=== PATIENT | female | born 1995 | race Caucasian/White ===

== ENCOUNTER 2017-04-01 06:35 | Inpatient (IN) | payer BC ==
[2017-04-01] MEDS ORDERED: Nalbuphine 20 MG/1 ML Amp IVPUSH PRN (07:33)
[2017-04-01] MEDS ORDERED: Lidocaine 1% 50 ML MDV INJECT ONE (07:33)
[2017-04-01] MEDS ORDERED: Sodium Chloride 0.9% 10 ML Syringe FLUSH PRN (07:33)
--- NOTE | 2017-04-01 07:43 | PCM.LDHP ---
L&D History of Present Illness - General Date of Service: 04/01/17 Admit Problem/Dx: Patient Status Order with Admit Dx/Problem 04/01/17 07:33 Patient Status [ADT] Routine Admission Diagnosis/Problem Admission Diagnosis/Problem 04/01/17 07:38 Induction of labor at 41 weeks 04/01/17 07:43 21 yo presents for induction of labor at 41 weeks gestation. routine care without complications. Good FM, No VB, No LOF. GBS Neg B positive Source of Information: Patient History Limitations: Reports: No Limitations - History of Present Illness Timing/Duration: Reports: intermittent Location, : Reports: Abdomen Quality: Reports: Pressure Severity: Mild Improves with: Reports: None Worsens with: Reports: None Associated Symptoms: Denies: vaginal bleeding, vaginal discharge - Related Data Allergies/Adverse Reactions: Allergies Allergy/AdvReac Type Severity Reaction Status Date / Time No Known Allergies Allergy Verified 09/24/15 21:51 Home Medications: Home Meds Vit W-Ca,Fe,FA(<1 mg) [ Vitamins] 1 tab PO DAILY 09/24/15 [ History] Past Medical History - Past Health History Medical/Surgical History: Denies Medical/Surgical History HEENT History: Reports: None Genitourinary History: Reports: Pyelonephritis 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: , Other (See Below) Other OB/BYN History: PUPPS Dermatologic History: Reports: Eczema, Other (See Below) Other Dermatologic History: PUPPS of - Past Surgical History HEENT Surgical History: Reports: Oral Surgery Social & Family History - Family History Family Medical History: Noncontributory - Tobacco Use Smoking Status *Q: Never Smoker Second Hand Smoke Exposure: Yes - Recreational Drug Use Recreational Drug Use: No H&P Review of Systems - Review of Systems: Review Of Systems: See Below General: Reports: No Symptoms HEENT: Reports: No Symptoms Pulmonary: Reports: No Symptoms Cardiovascular: Reports: No Symptoms Gastrointestinal: Reports: No Symptoms Genitourinary: Reports: No Symptoms Musculoskeletal: Reports: No Symptoms Skin: Reports: No Symptoms Psychiatric: Reports: No Symptoms Neurological: Reports: No Symptoms Hematologic/Lymphatic: Reports: No Symptoms Immunologic: Reports: No Symptoms L&D Exam - Exam Exam: See Below - OB Specific Contraction Intensity: Mild to Moderate Movement: Active Heart Tones: Present Heart Tones per Min: 140 Heart Rate (FHR) Variability: Moderate (6-25 bmp) Presentation: Vertex Estimated Weight: 3500 - Lennon Score Lennon Score Cervix Position: Midposition Lennon Score Consistency: Soft Lennon Score Effacement: 31-50% Lennon Score Dilation: 3-4 cm Lennon Score Infant's Station: -2 Lennon Score Total: 7 - Exam General: Alert, Oriented Genitourinary: Normal external exam Extremities: Normal Inspection, No Pedal Edema Skin: Warm, Dry, Intact Psychiatric: Alert, Normal Affect, Normal Mood Problem List Initiated/Reviewed/Updated: Yes Orders Last 24hrs: Active Orders 24 hr Category Date Time Status Patient Status [ADT] Routine ADT 04/01/17 07:33 Ordered Activity as Tolerated [RC] PFP Care 04/01/17 07:33 Ordered Communication Order [RC] ASDIRECTED Care 04/01/17 07:33 Ordered Communication Order [RC] ASDIRECTED Care 04/01/17 07:33 Ordered Communication Order [RC] ASDIRECTED Care 04/01/17 07:33 Ordered Communication Order [RC] ASDIRECTED Care 04/01/17 07:33 Ordered Heart Tones [RC] ASDIRECTED Care 04/01/17 07:33 Ordered Monitoring [RC] INTERMITTENT Care 04/01/17 07:33 Ordered Notify Provider [RC] ASDIRECTED Care 04/01/17 07:33 Ordered Notify Provider [RC] PFP Care 04/01/17 07:33 Ordered Notify Provider [RC] PRN Care 04/01/17 07:33 Ordered Peripheral IV Care [RC] . DIRECTED Care 04/01/17 07:33 Ordered Vaginal Exam [RC] ASDIRECTED Care 04/01/17 07:33 Ordered Vital Signs [RC] ASDIRECTED Care 04/01/17 07:33 Ordered Vital Signs [RC] PER UNIT ROUTINE Care 04/01/17 07:33 Ordered Clear Liquid Diet [DIET] Diet 04/01/17 Breakfast Ordered CBC W/O DIFF,HEMOGRAM [HEME] Stat Lab 04/01/17 07:33 Ordered Lactated Ringers [Ringers, Lactated] 1,000 ml Med 04/01/17 07:45 Ordered IV ASDIRECTED Lactated Ringers [Ringers, Lactated] 1,000 ml Med 04/01/17 07:45 Ordered IV ASDIRECTED Lidocaine 1% [Xylocaine 1%] Med 04/01/17 07:33 Once 50 ml INJECT ONETIME ONE Nalbuphine [Nubain] Med 04/01/17 07:33 Ordered 10 mg IVPUSH Q2H PRN Oxytocin/Lactated Ringers [Pitocin in LR 10 Units/1,000 Med 04/01/17 07:45 Ordered ML] 10 unit in 1,000 ml IV .CONTINUOUS Oxytocin/Lactated Ringers [Pitocin in LR 10 Units/1,000 Med 04/01/17 07:45 Ordered ML] 10 unit in 1,000 ml IV TITRATE Sodium Chloride 0.9% [Saline Flush] Med 04/01/17 07:33 Ordered 10 ml FLUSH ASDIRECTED PRN Electronic Heart Tones Ext w TOCO [WOMSER] Ot 04/01/17 07:33 Ordered Routine Electronic Heart Tones Internal [WOMSER] Per Unit Ot 04/01/17 07:33 Ordered Routine Peripheral IV Insertion Adult [OM.PC] Routine Oth 04/01/17 07:33 Ordered Peripheral IV Insertion Adult [OM.PC] Routine Oth 04/01/17 07:33 Ordered Resuscitation Status Routine Resus Stat 04/01/17 07:33 Ordered Assessment/Plan Comment:: 21 yo at 41 weeks for induction of labor Plan: pitocin inductions GBS negative. pt prefers no epidural.
[2017-04-01] MEDS ORDERED: Oxytocin/Lactated Ringers 10 UNIT/1,000 ML BAG IV SCH ×2 (07:45)
[2017-04-01] MEDS ORDERED: Lactated Ringers 1,000 ML IV SCH ×2 (07:45)
[2017-04-01] MEDS ORDERED: Lidocaine 1% 50 ML MDV ONE (18:03)
[2017-04-01] MEDS ORDERED: Benzocaine/Menthol 20%-0.5% Spray 56 GM Canister TOP PRN (19:26)
[2017-04-01] MEDS ORDERED: Bisacodyl 10 MG Supp RECTAL PRN (19:26)
[2017-04-01] MEDS ORDERED: Acetaminophen 325 MG Tab PO PRN (19:26)
--- NOTE | 2017-04-01 19:48 | PCM.SN ---
- Free Text/Narrative Note: On 04/01/17 at 1830 this 21 yo G2 now P2 female delivery a viable male weighing 8lbs 6 ounces via vaginal delivery. Delivery was over a sterile field with presenting in DANNA position. A nuchal cord x 1 was reduced over the body. After reduction of nuchal cord there was an obvious avulsion of the cord prior to delivery of the body. Mild shoulder dystocia, released with elevated legs and counterclockwise pressure on the posterior right (anterior) shoulder. At delivery, the site of cord avulsion was noted to be at the level of the umbilicus and skin. Cord clamp was placed. Cord blood was not obtained. Infant was transferred immediately to the warmer for stabilization with stimulation, pressure over umbilicus (which was not actively bleeding) and DeLee suction of clear fluid by nursing staff. Perineum was explored and no lacerations noted. An intact placenta delivered spontaneously at 1840. Minimal amount of bleeding resolved with uterine massage and evacuation of clot. Apgars 7 and 9. EBL 350 cc.
[2017-04-02] MEDS: Ibuprofen 600 MG Tab PO PRN ×2 (05:34→20:10)
--- NOTE | 2017-04-02 13:04 | PCM.PNPP ---
- General Info Date of Service: 04/02/17 Admission Dx/Problem (Free Text): vaginal delivery Functional Status: Reports: Pain Controlled, Tolerating Diet, Ambulating, Urinating - Review of Systems General: Reports: No Symptoms HEENT: Reports: No Symptoms Pulmonary: Reports: No Symptoms Cardiovascular: Reports: No Symptoms Gastrointestinal: Reports: No Symptoms Genitourinary: Reports: No Symptoms Musculoskeletal: Reports: No Symptoms Skin: Reports: No Symptoms Neurological: Reports: No Symptoms Psychiatric: Reports: No Symptoms - General Info Date of Service: 04/02/17 - Patient Data Vital Signs - Most Recent: Last Vital Signs Temp 36.4 C 04/02/17 12:00 Pulse 80 04/02/17 12:00 Resp 16 04/02/17 12:00 BP 116/80 04/02/17 12:00 Pulse Ox 98 04/02/17 12:00 Weight - Most Recent: 68.311 kg Lab Results - Last 24 Hours: Laboratory Results - last 24 hr 04/02/17 Range/Units 06:25 WBC 20.83 H (3.98-10.04) K/mm3 RBC 3.61 L (3.98-5.22) M/mm3 Hgb 11.1 L (11.2-15.7) gm/L Hct 33.3 L (34.1-44.9) % MCV 92.2 (79.4-94.8) fl MCH 30.7 (25.6-32.2) pg MCHC 33.3 (32.2-35.5) g/dl RDW Std Deviation 42.0 (36.4-46.3) fL Plt Count 196 (182-369) K/mm3 MPV 10.1 (9.4-12.3) fl Med Orders - Current: Current Medications Acetaminophen (Tylenol) 650 mg PO Q4H PRN PRN Reason: mild pain or fever Benzocaine/Menthol (Dermoplast Pain Relief [place]) 0 gm TOP ASDIRECTED PRN PRN Reason: Perineal Comfort Measure Bisacodyl (Dulcolax) 10 mg RECTAL BID PRN PRN Reason: Constipation Lactated Ringer's (Ringers, Lactated) 1,000 mls @ 100 mls/hr IV ASDIRECTED EMILIA Last Admin: 04/01/17 08:00 Dose: 100 mls/hr Lactated Ringer's (Ringers, Lactated) 1,000 mls @ 40 mls/hr IV ASDIRECTED EMILIA Oxytocin/Lactated Ringer's (Pitocin In Lr 10 Units/1,000 Ml) 10 unit in 1,000 mls @ 500 mls/hr IV .CONTINUOUS EMILIA Last Admin: 04/01/17 18:30 Dose: 500 mls/hr Oxytocin/Lactated Ringer's (Pitocin In Lr 10 Units/1,000 Ml) 10 unit in 1,000 mls @ 12 mls/hr IV TITRATE EMILIA; 2 MUNITS/MIN PRN Reason: Protocol Last Titration: 04/01/17 17:15 Dose: 6 munits/min, 36 mls/hr Ibuprofen (Motrin) 600 mg PO Q4H PRN PRN Reason: Mild pain or fever Last Admin: 04/02/17 05:34 Dose: 600 mg Nalbuphine HCl (Nubain) 10 mg IVPUSH Q2H PRN PRN Reason: Pain (moderate 4-6) Sodium Chloride (Saline Flush) 10 ml FLUSH ASDIRECTED PRN PRN Reason: Keep Vein Open Discontinued Medications Lidocaine HCl (Xylocaine 1%) 50 ml INJECT ONETIME ONE Stop: 04/01/17 07:34 Last Admin: 04/01/17 21:09 Dose: Not Given Lidocaine HCl (Xylocaine 1%) Confirm Administered Dose 50 ml .ROUTE .STK-MED ONE Stop: 04/01/17 18:04 Last Admin: 04/01/17 21:09 Dose: Not Given - Infant Interaction Disposition, : [place] in Room with Family Infant Interaction: Holding Infant Feeding: Breastfed Infant; Nursed Well Support Person: - Recovery Exam Fundal Tone: Firm Fundal Level: 1 Fingerbreadths Below Umbilicus Fundal Placement: Midline Lochia Amount: Small, Moderate Lochia Color: Rubra/Red Perineum Description: Intact, Minimal Bruising/Swelling Episiotomy/Laceration: None Bladder Status: Voiding - Exam General: Alert, Oriented Extremities: No Pedal Edema Skin: Warm, Dry, Intact Psy/Mental Status: Alert, Normal Affect, Normal Mood - Problem List Review Problem List Initiated/Reviewed/Updated: Yes - My Orders Last 24 Hours: My Active Orders 04/01/17 19:26 Patient Status [ADT] Routine Activity as Tolerated [RC] .PRN Acetaminophen [Tylenol] 650 mg PO Q4H PRN Benzocaine/Menthol [Dermoplast Pain Relief [place]] See Dose Instructions TOP ASDIRECTED PRN Bisacodyl [Dulcolax] 10 mg RECTAL BID PRN Ibuprofen [Motrin] 600 mg PO Q4H PRN Assess Lochia [WOMSER] Per Unit Routine Assess Uterine Involution [WOMSER] Per Unit Routine Breast Pump [WOMSER] Per Unit Routine Medication Administration Instruction [OM.PC] Routine Perineal Care [OM.PC] Per Unit Routine Sitz Bath [OM.PC] Per Unit Routine 04/01/17 19:30 Heat Therapy [OM.PC] PRN 04/01/17 Dinner Regular Diet [DIET] 04/02/17 19:30 Heat Therapy [OM.PC] PRN - Plan Plan:: 21 yo at 41 weeks for induction of labor Plan: pitocin inductions GBS negative. pt prefers no epidural. 04/02/17 routine care anticipate d/c on 04/03/17
--- NOTE | 2017-04-03 07:13 | PCM.DCSUM1 ---
Discharge Summary - Hospital Course Free Text/Narrative:: 21 yo at PPD #2 s/p NVD. Breastfeeing pain controlled. no concerns. routine stay. Exam unremarkable D/C to home today - Discharge Data Discharge Date: 04/03/17 Discharge Disposition: Home, Self-Care 01 Condition: Good - Discharge Diagnosis/Problem(s) (1) Normal labor SNOMED Code(s): 65676927 ICD Code: O80 - ENCOUNTER FOR FULL-TERM UNCOMPLICATED DELIVERY; Z37.9 - OUTCOME OF DELIVERY, UNSPECIFIED Status: Acute Current Visit: No - Patient Instructions Diet: Regular Diet as Tolerated Driving: [address] Drive Today Showering/Bathing: August Shower Notify Provider of: Fever, Increased Pain, Swelling and Redness, Drainage, Nausea and/or Vomiting - Discharge Plan Prescriptions/Med Rec: Docusate Sodium [Colace] 100 mg PO BID #60 cap Home Medications: Home Meds Vit W-Ca,Fe,FA(<1 mg) [ Vitamins] 1 tab PO DAILY 09/24/15 [ History] Acetaminophen [Tylenol] 650 mg PO Q4H PRN tablet 04/03/17 [Rx] Docusate Sodium [Colace] 100 mg PO BID #60 cap 04/03/17 [Rx] Ibuprofen [IJD: Ibuprofen] 600 mg PO Q4H PRN tablet 04/03/17 [Rx] Referrals: Lexi Murguia MD [Primary Care Provider] - (6-8 weeks) - Discharge Summary/Plan Comment DC Time >30 min.: No - General Info Date of Service: 04/03/17 Functional Status: Reports: Pain Controlled, Tolerating Diet, Ambulating - Patient Data Vitals - Most Recent: Last Vital Signs Temp 36.7 C 04/03/17 02:23 Pulse 71 04/03/17 02:23 Resp 16 04/03/17 02:23 BP 118/66 04/03/17 02:23 Pulse Ox 98 04/03/17 02:23 Weight - Most Recent: 68.311 kg I&O - Last 24 hours: Intake & Output 04/02/17 04/03/17 04/03/17 22:59 06:59 14:59 Intake Total 420 Balance 420 Med Orders - Current: Current Medications Acetaminophen (Tylenol) 650 mg PO Q4H PRN PRN Reason: mild pain or fever Benzocaine/Menthol (Dermoplast Pain Relief [place]) 0 gm TOP ASDIRECTED PRN PRN Reason: Perineal Comfort Measure Bisacodyl (Dulcolax) 10 mg RECTAL BID PRN PRN Reason: Constipation Lactated Ringer's (Ringers, Lactated) 1,000 mls @ 100 mls/hr IV ASDIRECTED EMILIA Last Admin: 04/01/17 08:00 Dose: 100 mls/hr Lactated Ringer's (Ringers, Lactated) 1,000 mls @ 40 mls/hr IV ASDIRECTED EMILIA Oxytocin/Lactated Ringer's (Pitocin In Lr 10 Units/1,000 Ml) 10 unit in 1,000 mls @ 500 mls/hr IV .CONTINUOUS EMILIA Last Admin: 04/01/17 18:30 Dose: 500 mls/hr Oxytocin/Lactated Ringer's (Pitocin In Lr 10 Units/1,000 Ml) 10 unit in 1,000 mls @ 12 mls/hr IV TITRATE EMILIA; 2 MUNITS/MIN PRN Reason: Protocol Last Titration: 04/01/17 17:15 Dose: 6 munits/min, 36 mls/hr Ibuprofen (Motrin) 600 mg PO Q4H PRN PRN Reason: Mild pain or fever Last Admin: 04/02/17 20:10 Dose: 600 mg Nalbuphine HCl (Nubain) 10 mg IVPUSH Q2H PRN PRN Reason: Pain (moderate 4-6) Sodium Chloride (Saline Flush) 10 ml FLUSH ASDIRECTED PRN PRN Reason: Keep Vein Open Discontinued Medications Lidocaine HCl (Xylocaine 1%) 50 ml INJECT ONETIME ONE Stop: 04/01/17 07:34 Last Admin: 04/01/17 21:09 Dose: Not Given Lidocaine HCl (Xylocaine 1%) Confirm Administered Dose 50 ml .ROUTE .STK-MED ONE Stop: 04/01/17 18:04 Last Admin: 04/01/17 21:09 Dose: Not Given *Q Meaningful Use (DIS) - VTE *Q VTE Criteria *Q: - Stroke *Q Stroke Criteria *Q: - AMI *Q AMI Criteria *Q: - General Info Date of Service: 04/03/17 - Patient Data Vital Signs - Most Recent: Last Vital Signs Temp 36.7 C 04/03/17 02:23 Pulse 71 04/03/17 02:23 Resp 16 04/03/17 02:23 BP 118/66 04/03/17 02:23 Pulse Ox 98 04/03/17 02:23 Weight - Most Recent: 68.311 kg I&O - Last 24 Hours: Intake & Output 04/02/17 04/03/17 04/03/17 22:59 06:59 14:59 Intake Total 420 Balance 420 Med Orders - Current: Current Medications Acetaminophen (Tylenol) 650 mg PO Q4H PRN PRN Reason: mild pain or fever Benzocaine/Menthol (Dermoplast Pain Relief [place]) 0 gm TOP ASDIRECTED PRN PRN Reason: Perineal Comfort Measure Bisacodyl (Dulcolax) 10 mg RECTAL BID PRN PRN Reason: Constipation Lactated Ringer's (Ringers, Lactated) 1,000 mls @ 100 mls/hr IV ASDIRECTED EMILIA Last Admin: 04/01/17 08:00 Dose: 100 mls/hr Lactated Ringer's (Ringers, Lactated) 1,000 mls @ 40 mls/hr IV ASDIRECTED EMILIA Oxytocin/Lactated Ringer's (Pitocin In Lr 10 Units/1,000 Ml) 10 unit in 1,000 mls @ 500 mls/hr IV .CONTINUOUS EMILIA Last Admin: 04/01/17 18:30 Dose: 500 mls/hr Oxytocin/Lactated Ringer's (Pitocin In Lr 10 Units/1,000 Ml) 10 unit in 1,000 mls @ 12 mls/hr IV TITRATE EMILIA; 2 MUNITS/MIN PRN Reason: Protocol Last Titration: 04/01/17 17:15 Dose: 6 munits/min, 36 mls/hr Ibuprofen (Motrin) 600 mg PO Q4H PRN PRN Reason: Mild pain or fever Last Admin: 04/02/17 20:10 Dose: 600 mg Nalbuphine HCl (Nubain) 10 mg IVPUSH Q2H PRN PRN Reason: Pain (moderate 4-6) Sodium Chloride (Saline Flush) 10 ml FLUSH ASDIRECTED PRN PRN Reason: Keep Vein Open Discontinued Medications Lidocaine HCl (Xylocaine 1%) 50 ml INJECT ONETIME ONE Stop: 04/01/17 07:34 Last Admin: 04/01/17 21:09 Dose: Not Given Lidocaine HCl (Xylocaine 1%) Confirm Administered Dose 50 ml .ROUTE .STK-MED ONE Stop: 04/01/17 18:04 Last Admin: 04/01/17 21:09 Dose: Not Given - Interaction Infant Disposition, : in Room with Family Infant Interaction: Holding Infant Feeding: Breastfed Infant; Nursed Well Support Person: - Recovery Exam Fundal Tone: Firm Fundal Level: 1 Fingerbreadths Below Umbilicus Fundal Placement: Midline Lochia Amount: Small Lochia Color: Rubra/Red Perineum Description: Intact, Minimal Bruising/Swelling Episiotomy/Laceration: None Bladder Status: Voiding Urinary Elimination: Voided - Exam General: Alert, Oriented Extremities: No Pedal Edema Skin: Warm, Dry, Intact
[2017-04-03 10:51] VITALS: BP 126/72
== END 2017-04-03 10:35 | disposition home or self-care (01) | DRG 560 ==
LOC: JD.OBCHECK 06:35 → JD.OB 06:35 → JD.OBCHECK 07:32 → JD.OB 07:33 → OBSVTOIN 18:30 → JD.OB 04-02 10:43
PROVIDERS: ADMIT Family Medicine; ATTEND Family Medicine
PROC: 10E0XZZ Delivery of Products of Conception, External Approach (ICD-10-PCS; principal; 2017-04-01)
PROC: 3E033VJ Introduction of Other Hormone into Peripheral Vein, Percutaneous Approach (ICD-10-PCS; 2017-04-01)
DX: O48.0 Post-term pregnancy (principal); Z3A.41 41 weeks gestation of pregnancy; Z37.0 Single live birth; O69.81X0 Labor and delivery complicated by cord around neck, without compression, not applicable or unspecified; O66.0 Obstructed labor due to shoulder dystocia
CPT/HCPCS: 36415; 59409; 85027; A9270-GY; J2590; J7120

== ENCOUNTER 2018-07-04 07:26 | Inpatient (IN) | payer BC ==
--- NOTE | 2018-07-04 09:12 | PCM.LDHP ---
L&D History of Present Illness - General Date of Service: 07/04/18 Admit Problem/Dx: Admission Diagnosis/Problem Admission Diagnosis/Problem 07/04/18 09:03 Pamela is a 23-year-old 3 para 2002 white female with intrauterine at term with an BROCK of 07/08/2018 as dated by an early ultrasound done on 12/15/2017 and supported by second ultrasound done on 02/23/2018. She is admitted for elective induction of labor. And 3/7 weeks gestational age. Source of Information: Patient History Limitations: Reports: No Limitations - History of Present Illness Introduction:: History of present illness patient is a 23-year-old 3 para 2001 female at 39 2/7 weeks' BROCK of 07/08/2018 admitted for elective induction of labor. BROCK determined by early ultrasound supported by second ultrasound. She is admitted for artificial rupture membranes induction of labor. This is carried out with resultant small amount of clear amniotic fluid. She is seen to be michelle every 4-5 minutes, mild in intensity. Patient is tolerating well. The heart tones are within normal limits. OB history history 3 para 2001. Patient's uncertain last menstrual period was 09/23/2017. She has regular periods acute 28 days. Menarche age 14. No control time conception. Previous deliveries include the followin. A male infant born 03/24/2017 at 41 weeks gestational age after 10 hours of labor. 8 lbs. 6 oz. Is Yadiel 2. Male infant born 09/25/2015 at 41 weeks gestational age after 8 hours labor. 7 lbs. 14 oz. Child's name is Javi. Her course was relatively unremarkable. She is a centering patient. Patient made good fundal height growth and had a weight gain from 121 pounds up to 149 for 28 pound increase. Her E PDS score on 02/16/2018 was 0/30. Group B strep screen is negative. Patient plans to breast-feed. She desires a natural labor Laboratory testing in shows blood to be B+ with negative amylase screen. First hemoglobin was 12.5 g who deciliter and platelets are 290 ,000. She is rubella nonimmune. RPR is nonreactive. Urine culture was negative. B surface antigen and HIV assays were both negative. GC and chlamydia tests were negative. Her 1 hour GTT was normal at 121. Second trimester hemoglobin was 10.6 and patient was started on ferrous sulfate at that time. Her platelets at that time were normal at 211,000. Group B strep screen negative. Allergies none Medications: 1. Ferrous sulfate 325 mg by mouth daily. 2. vitamins 1 by mouth daily Past medical history: 1. Normal spontaneous vaginal delivery 2 Past surgical history: 1. Oral surgery Family history: Mother is alive. She had 12 periods. She has high blood pressure. Father is alive and well. Patient has 7 brothers and 4 sisters. One sister with type 1 diabetes. Maternal grandfather is alive and with history of heart disease. Has occasional congestive heart failure. He is 89 years old. Paternal grandmother is alive and well. Paternal grandfather . Had type 2 diabetes. Had heart disease with open heart surgery. The terminal grandmother is secondary to old age. Did have a vertebral fracture. There is no family history of cancer, Nicola related problems, bleeding or clotting problems anesthesia or asthma concerns. Social history: Patient is . is Jd. She is [id number] mom. They live in [facility]. She has had some college education. She does not use any significant loss of alcohol, drugs or tobacco. Review of systems: In general patient has no complaints. Baby has been active. She is having some contractions but they are not intense. Skin: Negative Lungs: No infectious symptoms or shortness of breath Cardiovascular: No chest pain or exercise intolerance Breasts: No lumps, changes in size, pain, dimpling, discharge or axillary or supraclavicular concerns. GI: Negative : Negative Musculoskeletal: Negative Neurological: Negative In general the patient is well-developed, well-nourished, pleasant female of stated age in no acute distress. Skin is warm dry without lesions. HEENT, neck and back within normal limits. Lungs are clear with good breath sounds in all lung cervantes. Cardiovascular exam shows regular and rhythm without murmurs. Abdomen is gravid. Fundal height consistent with term . Baby in vertex presentation by Miky normal. Genital exam shows cervix to be 2 cm, 70% effaced, soft, -3 station, mid position, vertex presentation Extremities and neurological exam are grossly within normal limits. - Related Data Allergies/Adverse Reactions: Allergies Allergy/AdvReac Type Severity Reaction Status Date / Time No Known Allergies Allergy Verified 09/24/15 21:51 Home Medications: Home Meds Vit Calc,Iron,Folic [ Vitamins] 1 tab PO DAILY 09/24/15 [ History] Acetaminophen [Tylenol] 650 mg PO Q4H PRN tablet 04/03/17 [Rx] Docusate Sodium [Colace] 100 mg PO BID #60 cap 04/03/17 [Rx] Ibuprofen [IJD: Ibuprofen] 600 mg PO Q4H PRN tablet 04/03/17 [Rx] Past Medical History - Past Health History Medical/Surgical History: Denies Medical/Surgical History HEENT History: Reports: None Genitourinary History: Reports: Pyelonephritis 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: Other OB/BYN History: PUPPS Dermatologic History: Reports: Eczema Other Dermatologic History: PUPPS of - Past Surgical History HEENT Surgical History: Reports: Oral Surgery Other HEENT Surgeries/Procedures: wisdom teeth Social & Family History - Family History Family Medical History: Noncontributory - Tobacco Use Smoking Status *Q: Never Smoker Second Hand Smoke Exposure: No - Caffeine Use Caffeine Use: Reports: None - Recreational Drug Use Recreational Drug Use: No H&P Review of Systems - Review of Systems: Review Of Systems: See Below L&D Exam - Exam Exam: See Below - Vital Signs Vital Signs: Last Vital Signs Temp 37.2 C 07/04/18 08:53 Pulse 107 H 07/04/18 08:53 Resp 18 07/04/18 08:53 BP 114/71 07/04/18 08:53 Pulse Ox 98 07/04/18 08:53 Problem List Initiated/Reviewed/Updated: Yes Assessment/Plan Comment:: Assessment: 1. 39-3/7 week intrauterine , admitted for elective induction of labor 2. Rubella nonimmune 3. Group B strep screen negative 4. Desires natural labor 5. Plans to breast-feed. Plan: 1. Artificial rupture membranes/Pitocin induction of labor. Procedure, risks, benefits, alternatives of care discussed patient and her . They appear to understand and wish to proceed 2. MMR after delivery and prior to discharge from the hospital para 3. Support breast-feed incision 4. Epidural and other pain control modalities available to the patient she desires 5. Anticipate normal spontaneous vaginal delivery.
[2018-07-04] MEDS ORDERED: Nalbuphine 20 MG/ML 1 ML Syringe IVPUSH PRN (09:29)
[2018-07-04] MEDS ORDERED: Ondansetron 4 MG/2 ML SDV IVPUSH PRN (09:29)
[2018-07-04] MEDS ORDERED: Sodium Chloride 0.9% 10 ML Syringe FLUSH PRN (09:29)
[2018-07-04] MEDS ORDERED: Lactated Ringers 1,000 ML IV SCH (09:30)
[2018-07-04] MEDS ORDERED: Oxytocin/Lactated Ringers 10 UNIT/1,000 ML BAG IV SCH ×2 (09:30→09:45)
--- NOTE | 2018-07-04 19:29 | PCM.SN ---
- Free Text/Narrative Note: Pamela is a 23-year-old 3 now para 3003 white female who was admitted on the a.m. of 07/04/2018 for elective induction of labor. She is 39-3/7 weeks gestational age with an BROCK of 07/08/2018. Patient underwent artificial rupture membranes/Pitocin induction of labor. She progressed steadily to complete cervical dilation and at 1859 hrs. on 07/04/2018 she delivered a viable, steen, female with Apgars of 8 and 9, a length of 21 inches, a weight of 3960 g (8 lbs. 12 oz.). The baby delivered in a left occiput anterior position. Nuchal cord was noted 1 moderately tightreduced over the baby's body as unable to reduce over the baby's head. There was some difficulty delivering the anterior shoulder and suprapubic pressure by nursing staff was utilized to facilitate delivery of that shoulder. Findings most probably consistent with a mild shoulder dystocia. Pitocin was started immediately after delivery of the baby via IV to facilitate increase in uterine tone and decrease risk of bleeding. After baby was delivered the baby was placed on mom's abdomen. Baby was dried. Nose and mouth were bulb suctioned. Cord was allowed to pulsate for 1-2 minutes and then was clamped 2 and was then cut by the baby's father Ronan. Cord bloods obtained. The cord was noted to have 3 vessels. The placenta delivered in a Thompson fashion. It appeared intact, complete and was discarded per patient desire. Estimated blood loss was approximately 400 mL. Patient plans to breast-feed. Condition: Good
[2018-07-04] MEDS ORDERED: Benzocaine/Menthol 20%-0.5% Spray 56 GM Canister TOP PRN (19:37)
[2018-07-04] MEDS ORDERED: Witch Hazel Medicated Pads 40/Jar TOP PRN (19:37)
[2018-07-04] MEDS ORDERED: Docusate Sodium 100 MG Cap PO PRN (19:37)
[2018-07-04] MEDS ORDERED: Acetaminophen 325 MG Tab PO PRN (19:37)
[2018-07-04] MEDS ORDERED: Lanolin 100% Cream 7 GM Tube TOP PRN (19:37)
[2018-07-04] MEDS ORDERED: Methylergonovine 0.2 MG/1 ML Amp ONE (19:49)
[2018-07-04] MEDS: Ibuprofen 600 MG Tab PO PRN (21:03)
[2018-07-05] MEDS: Ibuprofen 600 MG Tab PO PRN ×2 (07:54→16:35)
--- NOTE | 2018-07-05 10:17 | PCM.SN ---
- Free Text/Narrative Note: note: Patient is doing well in the period. Minimal lochia, voiding well, ambulated without problems. Nursing without concerns. Patient is afebrile, vital signs are stable Abdomen is flat, soft, uterus is below the umbilicus and is firm and nontender. Legs are nontender. Assessment: recovery going well. Plan: Routine care. Patient be discharged home within the next 24-48 hours.
[2018-07-05] MEDS: Prenatal Multivitamin with Calcium/Folic Acid/Iron Tab PO SCH (11:42)
[2018-07-06] MEDS: Ibuprofen 600 MG Tab PO PRN (01:19)
--- NOTE | 2018-07-06 08:31 | PCM.DCSUM1 ---
Discharge Summary - Hospital Course Free Text/Narrative:: Pamela is a 23-year-old 3 now para 3003 white female who was admitted on the a.m. of 07/04/2018 for elective induction of labor. She is 39-3/7 weeks gestational age with an BROCK of 07/08/2018. Patient underwent artificial rupture membranes/Pitocin induction of labor. She progressed steadily to complete cervical dilation and at 1859 hrs. on 07/04/2018 she delivered a viable, steen, female with Apgars of 8 and 9, a length of 21 inches, a weight of 3960 g (8 lbs. 12 oz.). The baby delivered in a left occiput anterior position. Nuchal cord was noted 1 moderately tightreduced over the baby's body as unable to reduce over the baby's head. There was some difficulty delivering the anterior shoulder and suprapubic pressure by nursing staff was utilized to facilitate delivery of that shoulder. Findings most probably consistent with a mild shoulder dystocia. Pitocin was started immediately after delivery of the baby via IV to facilitate increase in uterine tone and decrease risk of bleeding. After baby was delivered the baby was placed on mom's abdomen. Baby was dried. Nose and mouth were bulb suctioned. Cord was allowed to pulsate for 1-2 minutes and then was clamped 2 and was then cut by the baby's father Ronan. Cord bloods obtained. The cord was noted to have 3 vessels. The placenta delivered in a Thompson fashion. It appeared intact, complete and was discarded per patient desire. Estimated blood loss was approximately 400 mL. Patient plans to breast-feed. Post patient is done well. She is desiring discharge home. Diagnosis: Stroke: No - Discharge Data Discharge Date: 07/06/18 Discharge Disposition: Home, Self-Care 01 Condition: Good - Patient Instructions Diet: Regular Diet as Tolerated (Nursing diet and increase calories and calcium as directed.) Activity: As Tolerated (No intercourse or tampons until bleeding resolves) Driving: May Drive Today Showering/Bathing: May Shower (May take a bath) Notify Provider of: Fever, Increased Pain, Swelling and Redness, Nausea and/or Vomiting - Discharge Plan Home Medications: Home Meds Vit Calc,Iron,Folic [ Vitamins] 1 tab PO DAILY 09/24/15 [ History] Calcium Carbonate [Calcium] 500 mg PO DAILY 07/04/18 [History] Ferrous Sulfate [Iron] 325 mg PO DAILY 07/04/18 [History] Acetaminophen [Tylenol] 650 mg PO Q4H PRN tablet 07/06/18 [Rx] Ibuprofen [Motrin] 600 mg PO Q4H PRN tablet 07/06/18 [Rx] Referrals: Yomi Shearer MD [Primary Care Provider] - (Return to clinicDr. [facility]harer2 weeks.) - Discharge Summary/Plan Comment DC Time >30 min.: No Discharge Summary/Plan Comment: Discharge instructions: 1. Discharge home 2. Diet, activity and follow-up discussed with patient. Recommend nursing diet with increased calories and calcium. 3. Precautions given concern increased pain, bleeding, temperature, signs/ symptoms of DVT/PE. 4. Medications per home medication was printed, discussed with and given to the patient. 5. Return to clinic-Dr. Shearer[facility] in 2 weeks. Diagnosis: Term -delivered Condition: Good - Patient Data Vitals - Most Recent: Last Vital Signs Temp 36.6 C 07/06/18 03:38 Pulse 74 07/06/18 03:38 Resp 15 07/06/18 03:38 BP 119/89 07/06/18 03:38 Pulse Ox 98 07/06/18 03:38 Weight - Most Recent: 67.132 kg I&O - Last 24 hours: Intake & Output 07/05/18 07/06/18 07/06/18 22:59 06:59 14:59 Intake Total 120 Balance 120 Med Orders - Current: Current Medications Acetaminophen (Tylenol) 650 mg PO Q4H PRN PRN Reason: mild pain or fever Last Admin: 07/05/18 11:44 Dose: 650 mg Benzocaine/Menthol (Dermoplast Pain Relief [place]) 0 gm TOP ASDIRECTED PRN PRN Reason: Perineal Comfort Measure Last Admin: 07/04/18 21:04 Dose: 1 applic Docusate Sodium (Colace) 100 mg PO BID PRN PRN Reason: Constipation Last Admin: 07/05/18 11:42 Dose: 100 mg Emollient Ointment (Lansinoh Hpa) 0 gm TOP ASDIRECTED PRN PRN Reason: Sore Nipples Last Admin: 07/05/18 10:18 Dose: 1 applic Ibuprofen (Motrin) 600 mg PO Q4H PRN PRN Reason: Mild pain or fever Last Admin: 07/06/18 01:19 Dose: 600 mg Prenat Multivit/Relations Director/Iron/Folic Ac ( Plus Iron) 1 each PO DAILY EMILIA Last Admin: 07/05/18 11:42 Dose: 1 each Witch Paige (Tucks) 1 pad TOP ASDIRECTED PRN PRN Reason: Pain Last Admin: 07/04/18 21:04 Dose: 1 applic Discontinued Medications Lactated Ringer's (Ringers, Lactated) 1,000 mls @ 100 mls/hr IV ASDIRECTED EMILIA Last Admin: 07/04/18 10:41 Dose: 100 mls/hr Oxytocin/Lactated Ringer's (Pitocin In Lr 10 Units/1,000 Ml) 10 unit in 1,000 mls @ 500 mls/hr IV .CONTINUOUS EMILIA Last Admin: 07/04/18 19:52 Dose: 500 mls/hr Oxytocin/Lactated Ringer's (Pitocin In Lr 10 Units/1,000 Ml) 10 unit in 1,000 mls @ 12 mls/hr IV TITRATE EMILIA; Protocol Last Titration: 07/04/18 15:51 Dose: 12 munits/min, 72 mls/hr Methylergonovine Maleate (Methergine) Confirm Administered Dose 0.2 mg .ROUTE .STK-MED ONE Stop: 07/04/18 19:50 Last Admin: 07/04/18 19:53 Dose: 0.2 mg Nalbuphine HCl (Nubain) 10 mg IVPUSH Q2H PRN PRN Reason: pain Ondansetron HCl (Zofran) 4 mg IVPUSH Q4H PRN PRN Reason: Nausea/Vomiting Sodium Chloride (Saline Flush) 10 ml FLUSH ASDIRECTED PRN PRN Reason: Keep Vein Open
[2018-07-06] MEDS: Prenatal Multivitamin with Calcium/Folic Acid/Iron Tab PO SCH (09:16)
[2018-07-06 09:58] VITALS: BP 101/82
== END 2018-07-06 10:30 | disposition home or self-care (01) | DRG 560 ==
LOC: JD.OB 07:26 → OBSVTOIN 18:59 → JD.OB 18:59 → EDSTATUS 07-08 07:24
PROVIDERS: ADMIT Obstetrics & Gynecology; ATTEND Obstetrics & Gynecology
PROC: 10907ZC Drainage of Amniotic Fluid, Therapeutic from Products of Conception, Via Natural or Artificial Opening (ICD-10-PCS; principal; 2018-07-04)
PROC: 6A550ZT Pheresis of Cord Blood Stem Cells, Single (ICD-10-PCS; principal; 2018-07-04)
PROC: 3E033VJ Introduction of Other Hormone into Peripheral Vein, Percutaneous Approach (ICD-10-PCS; principal; 2018-07-04)
PROC: 10E0XZZ Delivery of Products of Conception, External Approach (ICD-10-PCS; principal; 2018-07-04)
DX: O66.0 Obstructed labor due to shoulder dystocia (principal); O69.1XX0 Labor and delivery complicated by cord around neck, with compression, not applicable or unspecified; Z3A.39 39 weeks gestation of pregnancy; Z37.0 Single live birth
CPT/HCPCS: 36415; 59025; 59409; 85025; 86592; A9270-GY; J2210; J2590; J7120

== ENCOUNTER 2019-06-17 23:43 | Emergency (ER) | payer BC ==
[2019-06-17 23:53] VITALS: BP 117/82; PULSE 80
[2019-06-18] MEDS ORDERED: Folic Acid 1 MG Tab PO ONE (00:27)
--- NOTE | 2019-06-18 00:34 | EDM.PDOC ---
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 Lorenz is a very pleasant 23-year-old woman with no chronic medical problems , who states that she is . LMP 04/24/2019 -> 7w 6d by dates, . No ultrasound during this . 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 She has not started vitamins or folic acid. She states that she developed a sudden sharp/stabbing pain in her left pelvis around 21:00 this evening, followed by some vaginal bleeding. The menstrual pad that she is currently wearing is the first pad that she applied. No lightheadedness. No similar issues with prior pregnancies. The patient denies recent fever, chills, cough, dyspnea, chest pain, palpitations, nausea, vomiting, constipation, diarrhea, abdominal pain, urinary symptoms, recent weight gain or weight loss, recent bloody bowel movements or black bowel movements, recent joint aches, headaches, or rashes. Here in the ED, the patient is found to be hemodynamically stable, afebrile, saturating 100% on room air. The patient's PCP is Dr. Lexi Nunez. Her Lift Electrician is Dr. Yomi Shearer. He delivered her previously, but she has not met with him during this . She did not receive an influenza vaccine this season, and declined an offer to receive one here today. Left Lower Abdomen Pain Score (Numeric/FACES): 7 - Related Data Allergies Allergy/AdvReac Type Severity Reaction Status Date / Time No Known Allergies Allergy Verified 06/17/19 23:51 Home Meds: Home Meds Pnv No.95/Ferrous Fum/Folic AC [ Vitamin Tablet] 1 each PO DAILY #30 tablet 06/18/19 [Rx] Past Medical History : 4 Para: 3 - Past Surgical History HEENT Surgical History: Reports: Oral Surgery (wisdom teeth extraction) Social & Family History - Family History Family Medical History: Noncontributory - Tobacco Use Smoking Status *Q: Never Smoker - Caffeine Use Caffeine Use: Reports: None - Alcohol Use Alcohol Use History: No - Recreational Drug Use Recreational Drug Use: No - Living Situation & Occupation Living situation: Reports: , with Spouse, with Family (3 kids) Occupation: Unemployed ED ROS GENERAL - Review of Systems Review Of Systems: Comprehensive ROS is negative, except as noted in HPI. ED EXAM - Physical Exam Exam: See Below Exam Limited By: No Limitations General Appearance: Alert, WD/WN, No Apparent Distress Eye Exam: Bilateral Eye: EOMI, Normal Inspection Ears: Normal External Exam, Hearing Grossly Normal Nose: Normal Inspection Throat/Mouth: Normal Inspection, Normal Lips, Normal Voice, No Airway Compromise Head: Atraumatic, Normocephalic Neck: Normal Inspection, Full Range of Motion Respiratory/Chest: No Respiratory Distress, Lungs Clear, Normal Breath Sounds, No Accessory Muscle Use Cardiovascular: Normal Peripheral Pulses, Regular Rate, Rhythm, No Edema, No Gallop, No JVD, No Murmur, No Rub GI/Abdominal Exam: Normal Bowel Sounds, Soft, No Organomegaly, No Distention, No Abnormal Bruit, No Mass, Tender (LLQ only. Nontender elsewhere.) Rectal Exam: Deferred (Female) Exam: Other (Parous cervix closed. Small amount of mucousy bleeding from cervix.). No: Cervical Lesions, Cervix Motion Tenderness, Tissue Present in Cervix/Vagina Back Exam: Normal Inspection, Full Range of Motion, NT Extremities: Normal Inspection, Normal Range of Motion, No Pedal Edema, Normal Capillary Refill Neurological: Alert, Oriented, Normal Cognition, No Motor/Sensory Deficits Psychiatric: Normal Affect Skin Exam: Warm, Dry, Intact, Normal Color, No Rash Course - Vital Signs Last Recorded V/S: Last Vital Signs Temp 36.2 C 06/17/19 23:51 Pulse 80 06/17/19 23:51 Resp 19 06/17/19 23:51 BP 117/82 06/17/19 23:51 Pulse Ox 100 06/17/19 23:51 - Orders/Labs/Meds Orders: Active Orders 24 hr Category Date Time Status OB Transvaginal [US] Stat Exams 06/18/19 00:24 Taken Labs: Laboratory Tests 06/18/19 06/18/19 Range/Units 00:37 00:37 WBC 8.53 (3.98-10.04) K/mm3 RBC 4.00 (3.98-5.22) M/mm3 Hgb 11.8 (11.2-15.7) gm/dl Hct 35.9 (34.1-44.9) % MCV 89.8 (79.4-94.8) fl MCH 29.5 (25.6-32.2) pg MCHC 32.9 (32.2-35.5) g/dl RDW Std Deviation 39.6 (36.4-46.3) fL Plt Count 241 D (182-369) K/mm3 MPV 9.6 (9.4-12.3) fl Neut % (Auto) 46.0 (34.0-71.1) % Lymph % (Auto) 44.9 (19.3-51.7) % Richardson % (Auto) 7.4 (4.7-12.5) % Eos % (Auto) 1.4 (0.7-5.8) Baso % (Auto) 0.2 (0.1-1.2) % Neut # (Auto) 3.92 (1.56-6.13) K/mm3 Lymph # (Auto) 3.83 H (1.18-3.74) K/mm3 Richardson # (Auto) 0.63 H (0.24-0.36) K/mm3 Eos # (Auto) 0.12 (0.04-0.36) K/mm3 Baso # (Auto) 0.02 (0.01-0.08) K/mm3 HCG, Quant 7558.0 mIU/mL Meds: Medications Discontinued Medications Generic Name Dose Route Start Last Admin Trade Name Kyler PRN Reason Stop Dose Admin Folic Acid 1 mg 06/18/19 00:27 06/18/19 00:58 Folic Acid PO 06/18/19 00:28 1 mg ONETIME ONE Administration - Re-Assessments/Exams Free Text/Narrative Re-Assessment/Exam: 06/18/19 00:30 As above, patient developed sudden onset left pelvic pain, followed by vaginal bleeding around 21:00 tonight. 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 I have ordered a CBC and a quantitative hCG, along with a transvaginal ultrasound. Lastly, because the patient has not yet started vitamins with folic acid, I have ordered 1 mg of oral folic acid. 06/18/19 00:52 On pelvic examination, the patient's parous cervix is closed, although has a small amount of mucousy bleeding. No tissue seen in the cervix or vagina. 06/18/19 01:52 The patient's CBC is unremarkable. Her quantitative hCG is 7558. 06/18/19 02:14 Transvaginal ultrasound is read by [facility] as: 1. Early live intrauterine with a sonographic gestational age 5 weeks 6 days. 2. The cardiac rate is decreased at 98 bpm 3. Adjacent subchorionic hemorrhage measuring 1.2 cm. 4. A follow-up study in 1 week is suggested to document viability 06/18/19 02:24 Test results discussed with the patient and her . I will submit a prescription for vitamins with folic acid. I would like the patient to contact the office of Dr. Shearer this coming 06/19/2019, to make an appointment to be seen this coming week. Departure - Departure Time of Disposition: 02:25 Disposition: Home, Self-Care 01 Condition: Good Clinical Impression: Subchorionic hemorrhage in first trimester, Threatened - Discharge Information *PRESCRIPTION DRUG MONITORING PROGRAM REVIEWED*: Not Applicable *COPY OF PRESCRIPTION DRUG MONITORING REPORT IN PATIENT KVNG: Not Applicable Referrals: Yomi Shearer MD [Primary Care Provider] - Lexi Murguia MD [Physician] - Forms: ED Department Discharge Additional Instructions: You were seen in the emergency room after developing left pelvic pain along with vaginal bleeding, while . Work-up in the ER included a CBC, a quantitative hCG ( hormone level), and a transvaginal ultrasound. Your CBC was unremarkable. You are not anemic. Your quantitative hCG returned at 7558. The transvaginal ultrasound found that the fetus is approximately 5 weeks, 6 days and age, and that there is an adjacent subchorionic hemorrhage (bleed within the placenta). Subchorionic hemorrhages are not normal, but are fairly common during , and do not necessarily mean that this cannot be carried to full-term. We recommend that you contact the office of your Lift Electrician, Dr. Yomi Shearer , this coming 06/19/2019, to make an appointment to be seen this week. If any other problems, please do not hesitate to return to the ER. Sepsis Event Note - Evaluation Sepsis Screening Result: No Definite Risk - Focused Exam Vital Signs: Vital Signs Temp Pulse Resp BP Pulse Ox 06/17/19 23:51 36.2 C 80 19 117/82 100 Date Exam was Performed: 06/18/19 Time Exam was Performed: 02:14 - My Orders Last 24 Hours: My Active Orders 06/18/19 00:24 OB Transvaginal [US] Stat - Assessment/Plan Last 24 Hours: My Active Orders 06/18/19 00:24 OB Transvaginal [US] Stat
--- NOTE | 2019-06-18 07:56 | US ---
First trimester obstetrical ultrasound: Multiple real-time images were obtained transvaginally. Comparison: No previous study for current is available. Dates: LMP: LMP given as 04/24/19, BROCK 01/29/20, gestational age 7 weeks 6 days Current ultrasound: BROCK 02/12/20, gestational age of 5 weeks 6 days Single intrauterine gestation is seen. pole and small yolk sac are present. Subchorionic hemorrhage is present. Maternal ovaries are seen. Small corpus luteum cyst is noted within the right maternal ovary measuring 2.1 cm. Ovaries are otherwise unremarkable. Measurements: Montier-rump length: 0.27 cm - 5 weeks 6 days Heart rate: 97 BPM Impression: 1. Single intrauterine gestation. Dates as noted above. 2. Subchorionic hemorrhage is identified. Note: Follow-up study could be considered in 7-11 days to confirm viable . Diagnostic code #3 Agree with preliminary report issued by [facility] ([facility] preliminary report dictated on 06/18/19, 2:54 AM Central Time) Study was dictated in MDT
== END 2019-06-18 02:40 | disposition home or self-care (01) ==
LOC: JD.ED 23:43
DX: O20.8 Other hemorrhage in early pregnancy (principal); O20.0 Threatened abortion; Z3A.01 Less than 8 weeks gestation of pregnancy
CPT/HCPCS: 36415; 76817; 84702; 85025; 99284; A9270

== ENCOUNTER 2020-02-17 09:18 | Emergency (ER) | payer BC ==
[2020-02-17] MEDS ORDERED: Ondansetron 4 MG/2 ML SDV IVPUSH ONE (09:52)
--- NOTE | 2020-02-17 09:55 | EDM.PDOC ---
ED HPI GENERAL MEDICAL PROBLEM - General Chief Complaint: Abdominal Pain Stated Complaint: LOW ABD PAIN Time Seen by Provider: 02/17/20 09:50 Source of Information: Reports: Patient History Limitations: Reports: No Limitations - History of Present Illness INITIAL COMMENTS - FREE TEXT/NARRATIVE: 24-year-old female presents to the ED with diffuse lower abdominal pain and she reports a fever of 102.6 last evening with some chills. Of note this patient is 12 days . She had a normal vaginal delivery. She states the lochia seemed to stop last night. Pain in the lower abdomen started 2 days ago and was improved after a small bowel movements no bowel movement yesterday and she had to force her dialysis to have a small bowel up this morning with no blood. Aware fever and chills starting this morning. She did keep down a small amount of breakfast this morning. He is nauseated at present. Onset: Today Onset Date: 02/15/20 (Started to develop diffuse lower abdominal discomfort she feels that she may be constipated. She did have a small bowel movement nothing on Wednesday) Duration: Hour(s):, Constant Location: Reports: Abdomen, Back (Diffuse lower abdominal pain. Both flanks.) Quality: Reports: Ache, Other Severity: Moderate (Occasional colicky component in lower abdomen.) Improves with: Reports: None Worsens with: Reports: None Context: Denies: Activity, Exercise, Lifting, Sick Contact, Trauma, Other Associated Symptoms: Reports: Loss of Appetite, Malaise, Nausea/Vomiting, Weakness (Nausea but no vomiting). Denies: No Other Symptoms, Confusion, Chest Pain, Cough, cough w sputum, Diaphoresis, Fever/Chills, Headaches, Rash, Seizure, Shortness of Breath, Syncope Treatments STULL HEWER: Reports: Other (see below) (None.) Lower Abdominal Pain Score (Numeric/FACES): 8 - Related Data Allergies Allergy/AdvReac Type Severity Reaction Status Date / Time No Known Allergies Allergy Verified 02/17/20 09:50 Home Meds: Home Meds Pnv No.95/Ferrous Fum/Folic AC [ Vitamin Tablet] 1 each PO DAILY #30 tablet 06/18/19 [Rx] Cefdinir [Omnicef] 300 mg PO BID #16 cap 02/17/20 [Rx] Past Medical History - Past Health History Medical/Surgical History: Denies Medical/Surgical History HEENT History: Reports: None Cardiovascular History: Reports: None Gastrointestinal History: Reports: GERD Genitourinary History: Reports: Pyelonephritis TRAVEL JOURNALIST History: Reports: Other TRAVEL JOURNALIST History: PUPPS, Dermatologic History: Reports: Eczema Other Dermatologic History: PUPPS of - Past Surgical History HEENT Surgical History: Reports: Oral Surgery Cardiovascular Surgical History: Reports: None Social & Family History - Family History Family Medical History: No Pertinent Family History - Caffeine Use Caffeine Use: Reports: None - Living Situation & Occupation Living situation: Reports: , with Spouse, with Family (3 kids) Occupation: Unemployed ED ROS GENERAL - Review of Systems Review Of Systems: See Below Constitutional: Reports: Fever, Chills, Malaise, Weakness, Fatigue, Decreased Appetite HEENT: Reports: No Symptoms Respiratory: Reports: No Symptoms Cardiovascular: Reports: No Symptoms Endocrine: Reports: Fatigue GI/Abdominal: Reports: Abdominal Pain, Constipation, Decreased Appetite (Use lower abdominal pain) : Reports: Frequency Musculoskeletal: Reports: No Symptoms Skin: Reports: No Symptoms Neurological: Denies: Confusion, Dizziness, Headache, Numbness, Pre-Existing Deficit, Seizure, Syncope, Tingling, Trouble Speaking, Difficulty Walking, Weakness Psychiatric: Reports: No Symptoms Hematologic/Lymphatic: Reports: No Symptoms Immunologic: Reports: No Symptoms ED EXAM, GI/ABD - Physical Exam Exam: See Below Exam Limited By: No Limitations General Appearance: Alert, WD/WN, No Apparent Distress, Other (Temperature is 37.6. She does feel slightly warm palpation as well pulse is 107 and sinus respiratory is 18 BP 04/22/1974 pulse ox 95% room air) Eyes: Right: Normal Appearance (No scleral icterus.) Throat/Mouth: Normal Inspection, Normal Lips, Other Head: Atraumatic, Normocephalic (Is mildly dry and coated) Neck: Normal Inspection, Supple, Non-Tender, Full Range of Motion. No: Lymphadenopathy (L), Lymphadenopathy (R) Respiratory/Chest: No Respiratory Distress, Lungs Clear, Normal Breath Sounds, Chest Non-Tender Cardiovascular: Normal Peripheral Pulses, Regular Rate, Rhythm, No Edema, No Gallop, No Murmur, No Rub GI/Abdominal Exam: Soft, No Organomegaly, Pelvis Stable, Tender, Abnormal Bowel Sounds. No: Guarding, Rigid, Rebound (Mild tenderness left lower quadrant of abdomen) Back Exam: Normal Inspection, Full Range of Motion. No: CVA Tenderness (L), CVA Tenderness (R) Extremities: Normal Inspection, Normal Range of Motion, Non-Tender, No Pedal Edema Neurological: Alert, Oriented, CN II-XII Intact, Normal Cognition Psychiatric: Normal Affect, Normal Mood Skin Exam: Warm, Dry, Intact, Normal Color, No Rash Course - Vital Signs Last Recorded V/S: Last Vital Signs Temp 37.9 C 02/17/20 11:32 Pulse 100 02/17/20 13:05 Resp 18 02/17/20 09:45 BP 107/76 02/17/20 13:05 Pulse Ox 100 02/17/20 13:05 - Orders/Labs/Meds Orders: Active Orders 24 hr Category Date Time Status Abdomen 1V Flat [CR] Stat Exams 02/17/20 09:50 Taken CULTURE URINE [RM] Stat Lab 02/17/20 10:50 Received Labs: Laboratory Tests 02/17/20 02/17/20 02/17/20 Range/Units 10:24 10:24 10:54 WBC 18.83 H (3.98-10.04) K/mm3 RBC 3.97 L (3.98-5.22) M/mm3 Hgb 11.9 D (11.2-15.7) gm/dl Hct 36.2 (34.1-44.9) % MCV 91.2 (79.4-94.8) fl MCH 30.0 (25.6-32.2) pg MCHC 32.9 (32.2-35.5) g/dl RDW Std Deviation 40.6 (36.4-46.3) fL Plt Count 288 D (182-369) K/mm3 MPV 9.2 L (9.4-12.3) fl Neut % (Auto) 89.2 H (34.0-71.1) % Lymph % (Auto) 7.0 L (19.3-51.7) % [place] % (Auto) 3.2 L (4.7-12.5) % Eos % (Auto) 0.1 L (0.7-5.8) Baso % (Auto) 0.1 (0.1-1.2) % Neut # (Auto) 16.80 H (1.56-6.13) K/mm3 Lymph # (Auto) 1.31 (1.18-3.74) K/mm3 [place] # (Auto) 0.61 H (0.24-0.36) K/mm3 Eos # (Auto) 0.02 L (0.04-0.36) K/mm3 Baso # (Auto) 0.02 (0.01-0.08) K/mm3 Manual Slide Review Abnormal smear Sodium 136 (136-145) mEq/L Potassium 3.5 (3.5-5.1) mEq/L Chloride 102 (98-107) mEq/L Carbon Dioxide 24 (21-32) mEq/L Anion Gap 13.5 (5-15) BUN 8 (7-18) mg/dL Creatinine 0.7 (0.55-1.02) mg/dL Est Cr Clr Drug Dosing 96.32 mL/min Estimated GFR (MDRD) > 60 (>60) mL/min BUN/Creatinine Ratio 11.4 L (14-18) Glucose 101 (74-106) mg/dL Calcium 8.4 L (8.5-10.1) mg/dL Total Bilirubin 0.5 (0.2-1.0) mg/dL AST 17 (15-37) U/L ALT 19 (14-59) U/L Alkaline Phosphatase 83 (46-116) U/L C-Reactive Protein 25.4 H* (<1.0) mg/dL Total Protein 7.5 (6.4-8.2) g/dl Albumin 3.0 L (3.4-5.0) g/dl Globulin 4.5 gm/dL Albumin/Globulin Ratio 0.7 L (1-2) Urine Color Yellow (Yellow) Urine Appearance Clear (Clear) Urine pH 7.0 (5.0-8.0) Ur Specific [place] 1.020 (1.005-1.030) Urine Protein Negative (Negative) Urine Glucose (UA) Negative (Negative) Urine Ketones Negative (Negative) Urine Occult Blood 2+ H (Negative) Urine Nitrite Negative (Negative) Urine Bilirubin Negative (Negative) Urine Urobilinogen 0.2 (0.2-1.0) Ur Leukocyte Esterase 1+ H (Negative) Urine RBC 10-20 H (0-5) /hpf Urine WBC 20-30 H (0-5) /hpf Ur Squamous Epith Cells 0-5 (0-5) /hpf Urine Bacteria Few (FEW) /hpf Urine Mucus Rare (FEW) /hpf Meds: Medications Discontinued Medications Generic Name Dose Route Start Last Admin Trade Name Kyler PRN Reason Stop Dose Admin Acetaminophen 650 mg 02/17/20 11:26 02/17/20 11:32 Tylenol PO 02/17/20 11:27 650 mg NOW STA Administration Dextrose/Sodium Chloride 1,000 mls @ 250 mls/hr 02/17/20 10:00 02/17/20 10:21 Dextrose 5%-Normal Saline IV 250 mls/hr ASDIRECTED EMILIA Administration Ceftriaxone Sodium 2 gm/ 100 mls @ 200 mls/hr 02/17/20 11:30 02/17/20 11:33 Sodium Chloride IV 200 mls/hr Q24H EMILIA Administration Magnesium Citrate 240 ml 02/17/20 11:45 02/17/20 12:16 Citrate Of Magnesia PO 02/17/20 11:46 240 ml ONETIME ONE Administration Ondansetron HCl 4 mg 02/17/20 09:52 02/17/20 10:21 Zofran IVPUSH 02/17/20 09:53 4 mg ONETIME ONE Administration - Radiology Interpretation Free Text/Narrative:: 24-year-old female who is 12 days presents to the ED with diffuse lower abdominal pain and she feels she is constipated from taking pain medications. She has not had a good bowel movement for about 3 days. She did proceed with a very small amount of very hard stool this morning without blood. Secondly she spiked a fever of 102.8 during the night with some chills and again earlier this morning. She took Tylenol last about 0400 hrs. this morning. Of note she has breast-feeding and is aware of some tenderness in the left lateral inferior breast. She did not have a Cui catheter placed after delivery. - Re-Assessments/Exams Free Text/Narrative Re-Assessment/Exam: 02/17/20 11:22 White count is elevated at 18.83. There is a left shift with 89.2% neutrophils on the auto differential. Hemoglobin is low at 11.9 with hematocrit of 36.2. Platelet count is normal at 288,000. No bands cells appreciated on the smear. Sodium 136 with a potassium of 3.5. Chloride 102 with a bicarb of 24. Anion gap is 13.5. BUN is 8 with a creatinine of 0.7 GFR is greater than 60. Glucose 101 with a calcium of 8.4. Total bilirubin 0.5 liver function otherwise normal C-reactive protein is markedly elevated at 25.4. Total protein 7.5 with an albumin fraction of 3.0. The urinalysis does shows 2+ occult blood 1+ leukocyte Estrace with 10-20 RBCs per high-power field and 20-30 white blood cells per high-power field. A urine culture will be ordered. Patient will receive 2 g of Rocephin intravenously as she is breast-feeding. Patient will be treated with magnesium citrate when she gets home she will use 10 ounces mixed with 6 ounces of juice of choice to provide bowel cleanse. She will tentatively will be sent home on Omnicef 300 mg twice daily for the next 8 days to clear up upper urinary tract infection. She feels warm to palpation at this time and I am also going to give her Tylenol 650 mg p.o. She last took Tylenol around 4:00 this morning. 02/17/20 12:54 and has completed her 2 g of Rocephin intravenously for urinary t ract infection. She will be discharged to home at this point time on Omnicef 300 mg twice daily for another 8 days starting tomorrow morning. She will take her magnesium citrate 8 ounces by mouth when she gets home to provide bowel cleanse. Departure - Departure Time of Disposition: 12:55 Disposition: Home, Self-Care 01 Condition: Fair Clinical Impression: Upper urinary tract infection, Constipation by delayed colonic transit Abdominal pain Qualifiers: Abdominal location: lower abdomen, unspecified Qualified Code(s): R10.30 - Lower abdominal pain, unspecified - Discharge Information *PRESCRIPTION DRUG MONITORING PROGRAM REVIEWED*: Not Applicable *COPY OF PRESCRIPTION DRUG MONITORING REPORT IN PATIENT KVNG: Not Applicable Prescriptions: Cefdinir [Omnicef] 300 mg PO BID #16 cap Instructions: Constipation, Adult, Urinary Tract Infection, Adult Referrals: Yomi Shearer MD [Primary Care Provider] - Forms: ED Department Discharge Additional Instructions: Evaluation in the emergency room this morning in regards to diffuse abdominal pain associate with development of a fever reportedly as high as 102.6 last evening. Associated chills. You are 12 days post delivery of a baby. Lab test does reveal that you have a urinary tract infection and an elevated white blood cell count would suggest you have an upper urinary tract infection which we call pyelonephritis or kidney infection. First dose of antibiotic was therefore given in the ED-Rocephin 2 g IV and this is safe to use in and when breast-feeding. You will need to take an antibiotic called Omnicef 300 mg twice daily starting tomorrow morning for more days to clear up urinary tract infection completely. The x-ray of the abdomen does indeed show significant constipation with nearly 4-1/2 feet of colon stool-filled. Suggest using museum citrate or Citroma taking 8 ounces mixed with 6 ounces of juice of choice by mouth once. This will take 1 to 2 hours to work and your bowels will usually work for 5 times often ending and diarrhea. This should provide complete relief of abdominal pain. Continue to drink plenty of fluids so as not to get dehydrated while breast-feeding as this can contribute to constipation. You may want to start MiraLAX powder 17 g scoop once daily to make sure you do not become constipated in the near future. Your vitamins also contribute to constipation. Continue Tylenol 650 mg every 4-6 hours as necessary for fever relief. Fever should usually donna within the next 24 to 36 hours as the antibiotics become effective. Follow-up with personal care physician if any further problems occur. Sepsis Event Note (ED) - Evaluation Sepsis Screening Result: Possible Sepsis Risk - Focused Exam Vital Signs: Vital Signs Temp Temp Pulse Resp BP Pulse Ox 02/17/20 13:05 100 107/76 100 02/17/20 11:32 37.9 C 02/17/20 09:45 37.6 C 107 H 18 118/75 95 - My Orders Last 24 Hours: My Active Orders 02/17/20 09:50 Abdomen 1V Flat [CR] Stat 02/17/20 10:50 CULTURE URINE [RM] Stat - Assessment/Plan Last 24 Hours: My Active Orders 02/17/20 09:50 Abdomen 1V Flat [CR] Stat 02/17/20 10:50 CULTURE URINE [RM] Stat
[2020-02-17] MEDS ORDERED: Dextrose 5%-0.9% NaCl 1,000 ML IV SCH (10:00)
[2020-02-17] MEDS ORDERED: Acetaminophen 325 MG Tab PO STA (11:26)
[2020-02-17] MEDS ORDERED: cefTRIAXone 2 GM in Sodium Chloride 0.9% 100 ML IV SCH (11:30)
[2020-02-17] MEDS ORDERED: Magnesium Citrate Solution 296 ML Bottle PO ONE (11:45)
[2020-02-17 13:06] VITALS: BP 107/76; PULSE 100
--- NOTE | 2020-02-19 09:40 | CR ---
PROCEDURE INFORMATION: Exam: XR Abdomen, 1 View Exam date and time: 02/17/2020 9:56 AM Age: 24 years old Clinical indication: Other: Diffuse lower abdominal pain TECHNIQUE: Imaging protocol: XR of the abdomen. Views: Frontal supine view of the abdomen. 1 View. COMPARISON: CT Abdomen Pelvis w Cont 01/10/2015 3:32 AM FINDINGS: Gastrointestinal tract: Moderate amount of stool is present within the colon. Mild constipation is possible. No obstruction is identified. There is no free air. Bones/joints: Unremarkable. IMPRESSION: Mild constipation without obstruction. Thank you for allowing us to participate in the care of your patient. Dictated and Authenticated by: Tam Yanes MD 02/17/2020 12:16 PM Central Time ([place] & [place]) [facility]
== END 2020-02-17 13:15 | disposition home or self-care (01) ==
LOC: JD.ED 09:18
DX: O99.63 Diseases of the digestive system complicating the puerperium (principal); K59.01 Slow transit constipation; O86.20 Urinary tract infection following delivery, unspecified; O99.13 Other diseases of the blood and blood-forming organs and certain disorders involving the immune mechanism complicating the puerperium; D72.829 Elevated white blood cell count, unspecified
CPT/HCPCS: 36415; 74018; 80053; 81001; 85025; 86140; 87086; 87088; 87186; 96365; 96375; 99284; A9270; J0696; J2405; J7042; J7050

== ENCOUNTER 2021-09-23 05:51 | Inpatient (IN) | payer BC ==
[~2021-09-23 05:51] MED LIST: Bupivacaine 0.25% 10 ML SDV ONE; Lidocaine 1% 10 ML MDV ONE
[2021-09-23] MEDS ORDERED: Sodium Chloride 0.9% 10 ML Syringe FLUSH PRN (07:04)
[2021-09-23] MEDS ORDERED: Nalbuphine HCl 10 MG/ 1ML Amp IVPUSH PRN (07:04)
[2021-09-23] MEDS ORDERED: Ondansetron 4 MG/2 ML SDV IVPUSH PRN (07:04)
[2021-09-23] MEDS ORDERED: Oxytocin/Lactated Ringers 10 UNIT/1,000 ML BAG IV SCH (07:15)
[2021-09-23] MEDS ORDERED: Ampicillin 2 GM in Sodium Chloride 0.9% 100 ML IV ONE (07:30)
[2021-09-23] MEDS: Lactated Ringers 1,000 ML IV SCH ×2 (07:56→13:44)
[2021-09-23] MEDS: Oxytocin/Lactated Ringers 10 UNIT/1,000 ML BAG IV SCH ×2 (07:57→17:19)
[2021-09-23] MEDS ORDERED: Sodium Chloride 0.9% 10 ML Syringe FLUSH SCH (09:00)
[2021-09-23] MEDS: Ampicillin 1 GM in Sodium Chloride 0.9% 100 ML IV SCH ×2 (12:03→16:19)
[2021-09-23] MEDS ORDERED: Bupivacaine/fentaNYL/NS 100 ML Bag EPIDUR PRN (13:34)
[2021-09-23] MEDS ORDERED: diphenhydrAMINE 50 MG/ML SDV IVPUSH PRN (13:34)
[2021-09-23] MEDS ORDERED: fentaNYL 100 MCG/2 ML SDV EPIDUR PRN (13:34)
[2021-09-23] MEDS ORDERED: ePHEDrine 50 MG/ML SDV IVPUSH PRN (13:34)
[2021-09-23] MEDS ORDERED: fentaNYL 100 MCG/2 ML SDV ONE (13:39)
[2021-09-23] MEDS ORDERED: Misoprostol 200 MCG Tab ONE (18:19)
[2021-09-23] MEDS ORDERED: Docusate Sodium 100 MG Cap PO PRN (18:53)
[2021-09-23] MEDS ORDERED: Benzocaine/Menthol 20%-0.5% Spray 78 GM Cannister TOP PRN (18:53)
[2021-09-23] MEDS ORDERED: Acetaminophen 325 MG Tab PO PRN (18:53)
[2021-09-23] MEDS ORDERED: Witch Hazel Medicated Pads 40/Jar TOP PRN (18:53)
[2021-09-23] MEDS: Ibuprofen 600 MG Tab PO PRN (20:55)
[2021-09-24] MEDS: Ibuprofen 600 MG Tab PO PRN ×3 (03:06→15:02)
[2021-09-24] MEDS ORDERED: Prenatal Multivitamin with Calcium/Folic Acid/Iron Tab PO SCH (09:00)
[2021-09-24 15:11] VITALS: BP 139/90; PULSE 91
== END 2021-09-24 18:44 | disposition home or self-care (01) | DRG 560 ==
LOC: JD.OB 06:51 → OBSVTOIN 17:51 → JD.OB 17:52
PROVIDERS: ADMIT Obstetrics & Gynecology; ATTEND Obstetrics & Gynecology
PROC: 3E033VJ Introduction of Other Hormone into Peripheral Vein, Percutaneous Approach (ICD-10-PCS; principal; 2021-09-23)
PROC: 10E0XZZ Delivery of Products of Conception, External Approach (ICD-10-PCS; 2021-09-23)
PROC: 10907ZC Drainage of Amniotic Fluid, Therapeutic from Products of Conception, Via Natural or Artificial Opening (ICD-10-PCS; 2021-09-23)
PROC: 3E0R3BZ Introduction of Anesthetic Agent into Spinal Canal, Percutaneous Approach (ICD-10-PCS; 2021-09-23)
PROC: 00HU33Z Insertion of Infusion Device into Spinal Canal, Percutaneous Approach (ICD-10-PCS; 2021-09-23)
DX: O99.824 Streptococcus B carrier state complicating childbirth (principal); Z3A.39 39 weeks gestation of pregnancy; Z37.0 Single live birth; O99.62 Diseases of the digestive system complicating childbirth; K21.9 Gastro-esophageal reflux disease without esophagitis
CPT/HCPCS: 36415; 51702; 59025; 59409; 85025; 86592; 86850; 86900; 86901; A9270-GY; J0290; J2590; J3010; J3490; J7120

== ENCOUNTER 2023-12-28 11:56 | Inpatient (IN) | payer BC ==
[~2023-12-28 11:56] MED LIST changes: -Lidocaine 1% 10 ML MDV ONE
[2023-12-28] MEDS ORDERED: Lidocaine 1% 50 ML MDV INJECT PRN (12:23)
[2023-12-28] MEDS ORDERED: Calcium Carbonate 500 MG Tab.Chew PO PRN (12:23)
[2023-12-28] MEDS ORDERED: Ondansetron 4 MG/2 ML SDV IVPUSH PRN (12:23)
[2023-12-28] MEDS ORDERED: Oxytocin/0.9 % Sodium Chloride 30 UNIT/500 ML BAG IV SCH (12:30)
[2023-12-28] MEDS ORDERED: ePHEDrine 50 MG/ML SDV IVPUSH PRN (12:39)
[2023-12-28] MEDS ORDERED: diphenhydrAMINE 50 MG/ML SDV IVPUSH PRN (12:39)
[2023-12-28 13:05] LABS: BASOPHILS PERCENT AUTO 0.1 % (0.0-1.0); EOSINOPHILS ABSOLUTE AUTO 0.1 K/mm3 (0.0-0.4); HEMOGLOBIN 11.1 gm/dl (12.0-16.0); IMMATURE GRAN ABSOLUTE AUTO 0.04 K/mm3 (0.00-0.05); IMMATURE GRAN PERCENT AUTO 0.5 % (0.0-0.4); LYMPHOCYTES ABSOLUTE AUTO 2.3 K/mm3 (1.0-4.8); LYMPHOCYTES PERCENT AUTO 26.2 % (24.0-44.0); MEAN CORPUSCULAR HEMOGLOBIN 30.5 pg (28.0-32.0); MEAN CORPUSCULAR HGB CONC 34.7 g/dl (32.0-36.0); MEAN CORPUSCULAR VOLUME 87.9 fl (83.0-99.0); MEAN PLATELET VOLUME 11.2 fl (9.4-12.3); MONOCYTES ABSOLUTE AUTO 0.7 K/mm3 (0.0-0.8); MONOCYTES PERCENT AUTO 8.3 % (0.0-8.0); NEUTROPHILS ABSOLUTE AUTO 5.6 K/mm3 (1.8-7.7); NEUTROPHILS PERCENT AUTO 63.9 % (41.0-71.0); PLATELET COUNT,PLT 206 K/mm3 (150-400); RED BLOOD CELL COUNT 3.64 M/mm3 (4.10-5.30); WHITE BLOOD CELL COUNT,WBC 8.77 K/mm3 (3.9-11.3)
[2023-12-28] MEDS: Oxytocin/0.9 % Sodium Chloride 30 UNIT/500 ML BAG IV SCH (13:24)
[2023-12-28] MEDS: Lactated Ringers 1,000 ML IV SCH (13:24)
[2023-12-28] MEDS: Penicillin G Potassium 5 MILLUNITS in Sodium Chloride 0.9% 100 ML IV ONE (13:25)
[2023-12-28 13:37] LABS: PROTEIN CREATININE RATIO,URINE 406.3 mg/g (0-149); PROTEIN,URINE RANDOM 6.5 mg/dL (0.0-11.8)
[2023-12-28 13:59] LABS: A/G RATIO 0.7 (1-2); ALBUMIN 2.6 g/dl (3.4-5.0); ANION GAP 16.7 (5-15); BILIRUBIN TOTAL 0.2 mg/dL (0.2-1.0); BUN/CREATININE RATIO 13.3 (14-18); CALCIUM 9.7 mg/dL (8.5-10.1); CREATININE 0.6 mg/dL (0.55-1.02); EST CRCL DRUG DOSING (CG) 108.43 mL/min; POTASSIUM,K 3.7 mEq/L (3.5-5.1); PROTEIN TOTAL,TP 6.4 g/dl (6.4-8.2)
[2023-12-28] MEDS: Penicillin G Potassium 2.5 MILLUNITS in Sodium Chloride 0.9% 100 ML IV SCH (16:56)
[2023-12-28] MEDS: fentaNYL 100 MCG/2 ML SDV EPIDUR PRN (21:48)
[2023-12-28] MEDS: Bupivacaine/fentaNYL/NS 100 ML Bag EPIDUR PRN (21:52)
[2023-12-29] MEDS ORDERED: Acetaminophen 325 MG Tab PO PRN (02:00)
[2023-12-29] MEDS: Ibuprofen 600 MG Tab PO SCH ×2 (02:20→03:32)
[2023-12-29] MEDS: Benzocaine/Menthol 20%-0.5% Spray 78 GM Cannister TOP PRN (02:57)
[2023-12-29] MEDS: Witch Hazel Medicated Pads 40/Jar TOP PRN (02:57)
[2023-12-31 13:44] VITALS: BP 137/109; PULSE 108
== END 2023-12-31 14:20 | disposition home or self-care (01) | DRG 560 ==
LOC: JD.OB 11:56 → OBSVTOIN 12-29 00:03 → JD.OB 12-29 00:04
PROVIDERS: ADMIT Family Medicine; ATTEND Family Medicine
PROC: 10E0XZZ Delivery of Products of Conception, External Approach (ICD-10-PCS; principal; 2023-12-29)
PROC: 10907ZC Drainage of Amniotic Fluid, Therapeutic from Products of Conception, Via Natural or Artificial Opening (ICD-10-PCS; 2023-12-29)
PROC: 3E033VJ Introduction of Other Hormone into Peripheral Vein, Percutaneous Approach (ICD-10-PCS; 2023-12-29)
PROC: 3E0R3BZ Introduction of Anesthetic Agent into Spinal Canal, Percutaneous Approach (ICD-10-PCS; 2023-12-29)
PROC: 00HU33Z Insertion of Infusion Device into Spinal Canal, Percutaneous Approach (ICD-10-PCS; 2023-12-29)
PROC: 10H07YZ Insertion of Other Device into Products of Conception, Via Natural or Artificial Opening (ICD-10-PCS; 2023-12-29)
DX: O13.4 Gestational [pregnancy-induced] hypertension without significant proteinuria, complicating childbirth (principal); Z37.0 Single live birth; O99.824 Streptococcus B carrier state complicating childbirth; O69.81X0 Labor and delivery complicated by cord around neck, without compression, not applicable or unspecified; O14.04 Mild to moderate pre-eclampsia, complicating childbirth; O99.02 Anemia complicating childbirth; Z98.890 Other specified postprocedural states; Z3A.38 38 weeks gestation of pregnancy
CPT/HCPCS: 36415; 51701; 59025; 59409; 80053; 82570; 84156; 85025; 86592; 86850; 86900; 86901; A9270-GY; J0665; J2540; J3010; J3490; J7120; J7999

== ENCOUNTER 2024-02-07 13:27 | Emergency (ER) | payer BC ==
[2024-02-07] MEDS: Ketorolac 30 MG/ML SDV IVPUSH ONE (14:15)
[2024-02-07] MEDS: Ondansetron 4 MG/2 ML SDV IVPUSH ONE (14:15)
[2024-02-07] MEDS: Acetaminophen 325 MG Tab PO ONE (14:15)
[2024-02-07] MEDS: Sodium Chloride 0.9% 1,000 ML IV STA (14:15)
[2024-02-07 15:25] VITALS: BP 135/95; PULSE 75
== END 2024-02-07 15:45 | disposition home or self-care (01) ==
LOC: JD.ED 13:27
DX: G43.909 Migraine, unspecified, not intractable, without status migrainosus (principal)
CPT/HCPCS: 70450; 96374; 96375; 99284; A9270; J1885; J2405; J7030; 99283